=== PATIENT | female | born 1985 | race Caucasian/White ===

== ENCOUNTER → 2016-08-17 | Outpatient (CLI) | payer OTHER ==
[~2016-08-17] MED LIST: MTR600X PO; MULT-506 PO
== END | disposition home or self-care (01) ==
LOC: C.PAPS 12:00
PROVIDERS: ATTEND Obstetrics & Gynecology
DX: Z01.419 Encounter for gynecological examination (general) (routine) without abnormal findings (principal)

== ENCOUNTER 2022-10-29 06:44 | Observation (INO) ==
[2022-10-29] MEDS ORDERED: ONDANSETRON INJ 2 MG/ML 2 ML VIAL IV STA ×2 (07:10→10:07)
[2022-10-29] MEDS ORDERED: SODIUM CHLORIDE 0.9% 1000ML 1,000 ML IV STA (07:10)
[2022-10-29] MEDS ORDERED: KETOROLAC TROMETHAMINE 15 MG/ML VIAL IV STA (07:10)
[2022-10-29 07:25] LABS: Appearance Urine Clear (Clear); Bilirubin Urine Negative (Negative); Blood Urine Negative (Negative); Color Urine Yellow; Glucose Urine UA Negative (Negative); Ketones Urine Trace (Negative); Leukocyte Esterase Urine Negative (Negative); Nitrite Urine Negative (Negative); Protein Urine Negative (Negative); Specific Gravity Urine 1.027 (1.000-1.030); Urobilinogen Urine Negative (Negative)
[2022-10-29] MEDS: fentaNYL citrate PF 100 MCG/2 ML VIAL IV PRN ×2 (07:27→09:53)
[2022-10-29 07:38] LABS: Basophils # (auto) 0.04 K/uL (0-0.2); Basophils % (auto) 0.9 %; Eosinophils # (auto) 0.11 K/uL (0-0.50); Eosinophils % (auto) 2.5 %; Hematocrit (blood only) 39.5 % (37.0-47.0); Hemoglobin 13.5 g/dl (12.0-16.0); Immature Granulocytes # (auto) 0.01 K/uL (0.01-0.20); Immature Granulocytes % (auto) 0.2 %; Lymphocytes # (auto) 1.82 K/uL (1.2-3.4); Lymphocytes % (auto) 40.7 %; Mean Corpuscular Hgb Conc 34.2 g/dL (32.0-36.0); Mean Corpuscular Volume 90.6 fL (80.0-100.0); Mean Platelet Volume 9.1 fL (9.4-12.4); Monocytes # (auto) 0.37 K/uL (0.11-0.59); Monocytes % (auto) 8.3 %; Neutrophils # (auto) 2.12 K/uL (1.40-6.50); Neutrophils % (auto) 47.4 %; Platelet Count 356 K/uL (130-400); RDW Standard Deviation 39.9 fL (36.4-46.3); Red Blood Count 4.36 M/uL (4.20-5.40); White Blood Count 4.47 K/ul (4.8-10.8)
--- NOTE | 2022-10-29 07:47 | Emergency Department Note ---
Impression & Plan Left lateral abdominal pain ED Provider Note INFORMANT: Patient ED PROVIDER(S): Smith Ryan DO CHIEF COMPLAINT: Abdominal pain PLAN: Disposition: Admission Outpatient prescription management: none Discussion with: I spoke with the hospitalist, who will see the patient for admission/observation and further evaluation and consultation. I also spoke with general surgeon, Dr. Rebeca Davis about the patient. MEDICAL DECISION MAKING: This is a 36-year-old female who presents to the ED with a chief complaint of abdominal pain. The pain is in the entire abdomen now. She states that it initially started in the left upper quadrant when she was lifting some weights. She states that she had done treadmill and some crunches. When she was on a bench press doing some weights, she suddenly developed a severe pain in the left upper quadrant. She states that that was about 4:50 AM. She had associated nausea and vomiting secondary to the pain. The pain will come in waves. The patient denies any radiation of the symptoms. She reports history of appendectomy and partial hysterectomy in the past. The pain is more diffuse now. On my exam her vital signs are stable. She is somewhat hypertensive secondary likely to the pain. The patient's lungs are clear. Heart is regular no. Abdomen is soft and diffusely tender. When she contracts her abdominal mus cles, she does not appear to have tenderness in the abdominal musculature. No CVA tenderness. A CBC does not show leukocytosis or anemia. Urine did not show infection. EKG shows a normal sinus rhythm. CBC showed no leukocytosis or anemia. Lipase was negative for pancreatitis. Chest x-ray is clear. CT scan of the abdomen pelvis shows some mild edema and inflammation of some loops of small bowel. This could be related to an enteritis versus internal hernia versus ischemia. Based on the patient's mechanism and history, enteritis seems a little unlikely. Certainly ischemia seems unlikely as well. Internal hernia is a possibility. I spoke with general surgeon, Dr. Felder who r ecommends observation. The medicine service will see the patient for observation. No surgery was indicated at this time Triage Nursing notes reviewed. Vital Signs: reviewed Prior /Outside records reviewed: HIM TECH visit from 10/16/2021 post op visit for hysterectomy. Differential diagnosis: Differential includes musculoskeletal, kidney stone, ovarian cyst rupture, ruptured viscus, vascular catastrophe, other Diagnostics, as interpreted by me: 12 lead ECG: Normal sinus rhythm rate of 69. No ST elevation. No PVCs. Normal QTc. Cardiac Monitoring ordered: Normal sinus rhythm in the 60s and 70s. Medical decision rules: none Imaging studies: Chest x-ray: No acute disease. No pneumonia. No pneumothorax. CT scan of the abdomen pelvis: No obstruction. Procedures: none. Critical care: none. HPI: See MDM above. PAST MEDICAL HISTORY: See Below PAST SURGICAL HISTORY: See Below SOCIAL HISTORY: See Below HOME MEDICATIONS: See Below ALLERGIES: See Below VITALS: See Below PHYSICAL EXAMINATION: See MDM for positive findings otherwise unremarkable. CONSTITUTIONAL/VITAL SIGNS: Reviewed GENERAL:done as appropriate INTEGUMENTARY: done as appropriate HEAD: done as appropriate EYES: done as appropriate RESPIRATORY: done as appropriate CARDIOVASCULAR:done as appropriate GI/ABDOMEN:done as appropriate EXTREMITIES: done as appropriate NEUROLOGICAL: done as appropriate PSYCHIATRIC:done as appropriate MUSCULOSKELETAL:done as appropriate TRIAGE NURSING DOCUMENTATION REVIEWED. Past Med/Surg History Medical History Abnormal uterine bleeding (AUB) H/O uterine leiomyoma H/O varicella Suspected 2018 novel coronavirus infection DAY AFTER 2020-IN CONTACT WITH SON WHO WAS COVID POS-PT HAD POS HOME TEST-STUFFY NOSE, LOSS TASTE AND SMELL-RECOVERED AT HOME-SYMPTOMS RESOLVED Surgical History S/P appendectomy S/P tooth extraction Family History Sister Leiomyoma of body of uterus Mother Hypertension Anemia Denies family history of Ovarian cancer Breast cancer Colorectal cancer Social History Smoking Status: Never smoker Second Hand Exposure: No; Do You Dip or Chew Tobacco: No; Hx Alcohol Use: Yes Alcohol type: beer, wine and hard liquor Hx Substance Use: No Preferred Language: Arabic Communication Ability: Effective Imagery Analyst Required: No Beliefs That Will Affect Care: None Current Living Situation: Spouse and Family current occupational status: employed current occupation: DIETITIAN Feels Safe at Home: Yes Assistive Devices: Contacts and Glasses Allergies Allergies Allergy/AdvReac Type Severity Reaction Status Date / Time codeine AdvReac Unknown Nausea Verified 10/16/21 11:33 Home Meds Home Medications Medication Instructions Recorded Confirmed cholecalciferol (vitamin D3) 50 2,000 units PO HS 07/06/19 10/06/21 mcg (2,000 unit) tablet lactobacillus combination no.4 3 3,000 mmu cells PO QPM 08/03/21 10/06/21 billion cell capsule (Probiotic) multivitamin 1 tab PO HS 08/03/21 10/06/21 Results & Data (ED) Vital Signs Vital Signs - 24 hr 10/29/22 06:48 10/29/22 07:38 10/29/22 07:38 Temperature 36.4 C L Temperature Source Temporal Artery Scan Pulse Rate 78 76 Pulse Rate [Left Finger] 68 Respiratory Rate 18 16 16 Respiratory Effort / Characteristics Non-Labored Respiratory Depth Shallow Normal Blood Pressure 156/91 H Blood Pressure [Left Arm] 136/90 Blood Pressure Mean 112 Blood Pressure Mean [Left Arm] 105 Pulse Oximetry 100 98 98 Oxygen Delivery Method Room Air Room Air Room Air Sepsis Recent Fever Within 48 Hours No Sepsis New/Unexplained Change in Mental Status No Sepsis Action Taken by Nursing No Action Required 10/29/22 07:55 10/29/22 09:52 Temperature Temperature Source Pulse Rate 70 Pulse Rate [Left Finger] 76 Respiratory Rate 16 Respiratory Effort / Characteristics Non-Labored Respiratory Depth Normal Blood Pressure Blood Pressure [Left Arm] 151/89 H Blood Pressure Mean Blood Pressure Mean [Left Arm] 109 Pulse Oximetry 100 Oxygen Delivery Method Room Air Sepsis Recent Fever Within 48 Hours Sepsis New/Unexplained Change in Mental Status Sepsis Action Taken by Nursing Laboratory Data 10/29/22 07:00 10/29/22 07:00 Lab Results 10/29/22 10/29/22 10/29/22 Range/Units 06:55 07:00 07:00 WBC 4.47 L (4.8-10.8) K/ul RBC 4.36 (4.20-5.40) M/uL Hgb 13.5 (12.0-16.0) g/dl Hct 39.5 (37.0-47.0) % MCV 90.6 (80.0-100.0) fL MCH 31.0 (25.0-34.0) pg MCHC 34.2 (32.0-36.0) g/dL RDW Std Deviation 39.9 (36.4-46.3) fL RDW Coeff of Shen 12.0 (11.5-14.5) % Plt Count 356 (130-400) K/uL MPV 9.1 L (9.4-12.4) fL Immature Gran % (Auto) 0.2 % Neut % (Auto) 47.4 % Lymph % (Auto) 40.7 % [place] % (Auto) 8.3 % Eos % (Auto) 2.5 % Baso % (Auto) 0.9 % Neut # (Auto) 2.12 (1.40-6.50) K/uL Lymph # (Auto) 1.82 (1.2-3.4) K/uL [place] # (Auto) 0.37 (0.11-0.59) K/uL Eos # (Auto) 0.11 (0-0.50) K/uL Baso # (Auto) 0.04 (0-0.2) K/uL Immature Gran # (Auto) 0.01 (0.01-0.20) K/uL Sodium 138 (136-145) mmol/L Potassium 3.6 (3.5-5.1) mmol/L Chloride 105 (98-107) mmol/L Carbon Dioxide 25 (21-32) mmol/L Anion Gap 8 (3-11) BUN 12 (6-23) mg/dl Creatinine 0.77 (0.6-1.2) mg/dl Est Cr Clr Drug Dosing 112.3 ml/min Est GFR ( Amer) 114.3 ml/min Est GFR (Non-Af Amer) 98.6 ml/min BUN/Creatinine Ratio 15.6 (10-20) Glucose 113 H (70-99(Fasting)) mg/dl Calcium 8.8 (8.6-10.3) mg/dl Total Bilirubin 0.3 (0.2-1.0) mg/dl AST 16 (13-39) U/L ALT 14 (7-52) U/L Alkaline Phosphatase 43 (34-104) U/L Total Protein 6.9 (6.0-8.3) gm/dl Albumin 4.2 (3.4-5.0) gm/dl Globulin 2.7 (2.5-4.0) gm/dl Albumin/Globulin Ratio 1.6 (0.9-2) Lipase 15 (11-82) U/L Urine Color Yellow Urine Appearance Clear (Clear) Urine pH 7.0 (4.5-7.5) Ur Specific [place] 1.027 (1.000-1.030) Urine Protein Negative (Negative) Urine Glucose (UA) Negative (Negative) Urine Ketones Trace H (Negative) Urine Blood Negative (Negative) Urine Nitrite Negative (Negative) Urine Bilirubin Negative (Negative) Urine Urobilinogen Negative (Negative) Ur Leukocyte Esterase Negative (Negative) Administered Medications Fentanyl Citrate (Fentanyl Citrate Pf 100 Mcg/2 Ml Vial) 50 mcg IV Q15M PRN PRN Reason: Pain Stop: 11/12/22 07:09 Last Admin: 10/29/22 09:53 Dose: 50 mcg Documented By: Admin: 10/29/22 07:27 Dose: 50 mcg Documented By: CASSIDY Discontinued Medications Sodium Chloride (Nss 1000ml) 1,000 mls @ 999 mls/hr IV .Q1H1M STA Stop: 10/29/22 08:10 Last Infusion: 10/29/22 08:52 Dose: 0 mls/hr Documented By: Admin: 10/29/22 07:23 Dose: 999 mls/hr Documented By: CASSIDY Ioversol (Optiray 320 100ml) 90 ml IV ONCE ONE Stop: 10/29/22 08:52 Last Admin: 10/29/22 08:51 Dose: 90 ml Documented By: MILLY Ketorolac Tromethamine (Ketorolac Tromethamine 15 Mg/Ml Vial) 30 mg IV NOW STA Stop: 10/29/22 07:11 Last Admin: 10/29/22 07:34 Dose: 30 mg Documented By: CASSIDY Ondansetron HCl (Ondansetron Inj 2 Mg/Ml 2 Ml Vial) 4 mg IV NOW STA Stop: 10/29/22 07:11 Last Admin: 10/29/22 07:22 Dose: 4 mg Documented By: CASSIDY Ondansetron HCl (Ondansetron Inj 2 Mg/Ml 2 Ml Vial) 4 mg IV NOW STA Stop: 10/29/22 10:08 Last Admin: 10/29/22 10:33 Dose: 4 mg Documented By: CASSIDY Imaging Data Radiologist's Impression: Abdomen/Pelvis CT 10/29/22 07:[address] WITH IV CONTRAST CT DOSE: 646.88 mGycm HISTORY: sudden LUQ pain, now diffuse, vomiting TECHNIQUE: Multiaxial CT images of the abdomen and pelvis were performed following the use of intravenous contrast. A dose lowering technique was utili zed adhering to the principles of ALARA. COMPARISON STUDY: Abdomen and pelvis CT 08/06/2010. FINDINGS: The lung bases are clear. No pneumoperitoneum. No pneumatosis. A few punctate sclerotic foci within the pelvic bones are nonspecific but favor bone islands. The liver, gallbladder, pancreas, spleen, and adrenal glands are unremarkable. Normal left kidney. A 4 mm hypodense lesion within the right kidney too small to characterize but may represent an angiomyolipoma. No hydronephrosis. The main portal vein is patent. The celiac, superior mesenteric, and inferior mesenteric arteries appear patent. Normal caliber abdominal aorta. No retroperitoneal lymphadenopathy. The bladder is unremarkable. Prior hysterectomy and appendectomy. Mild edema/inflammatory change surrounding multiple loops of small bowel within the left mid to lower abdomen. These values do not appear to be significantly distended. Therefore, no evidence for bowel obstruction at this time. IMPRESSION: Mild edema/inflammatory change surrounding multiple loops of small bowel within the left mid abdomen. This favors a nonspecific enteritis and could be due to an infectious or inflammatory process. An underlying internal hernia or ischemia could also be considered in the differential diagnosis. However, there is no evidence for a bowel obstruction at this time. ACT 112: Negative or not required by law. Electronically signed by: Allen Colby M.D. 10/29/2022 9:43 AM Chest X-Ray 10/29/22 07:13 SINGLE VIEW CHEST CLINICAL HISTORY: Generalized abdominal pain. FINDINGS: An AP, portable, upright chest radiograph is obtained. No prior studies are available for comparison at the time of dictation. The cardiomediastinal silhouette is unremarkable. The lungs and pleural spaces are clear. No pneumothorax is seen. The bony thorax is grossly intact. IMPRESSION: No active disease in the chest. ACT 112: Negative or not required by law. Electronically signed by: Galileo Bernal M.D. 10/29/2022 8:02 AM Discharge Plan Visit Data Chief Complaint: Abdominal Pain Stated Complaint: SEVERE ABDOMINAL PAIN LEFT SIDE IN [facility] ED Provider: Smith Ryan Discharge Problem: Left lateral abdominal pain Patient Disposition: Being Evaluated by Hospitalist Forms Stand Alone Forms: [facility] Prescriptions Prescriptions: No Action cholecalciferol (vitamin D3) 2,000 unit tablet 2,000 units PO HS Probiotic 3 billion cell Capsule 3,000 mmu cells PO QPM multivitamin Tablet 1 tab PO HS Referrals Referrals: Margoth Jason MD [Outside Practitioners] -
[2022-10-29 07:53] LABS: Albumin Globulin Ratio 1.6 (0.9-2); Albumin Level 4.2 gm/dl (3.4-5.0); BUN Creatinine Ratio 15.6 (10-20); Bilirubin,Total 0.3 mg/dl (0.2-1.0); Calcium 8.8 mg/dl (8.6-10.3); Creatinine Clr Calc Pharmacy 112.3 ml/min; Est GFR (African American) 114.3 ml/min; Est GFR (Non-African American) 98.6 ml/min; Globulin 2.7 gm/dl (2.5-4.0); Potassium 3.6 mmol/L (3.5-5.1); Total Protein 6.9 gm/dl (6.0-8.3)
--- NOTE | 2022-10-29 08:03 | XRay Report ---
SINGLE VIEW CHEST CLINICAL HISTORY: Generalized abdominal pain. FINDINGS: An AP, portable, upright chest radiograph is obtained. No prior studies are available for c omparison at the time of dictation. The cardiomediastinal silhouette is unremarkable. The lungs and p leural spaces are clear. No pneumothorax is seen. The bony thorax is grossly intact. IMPRESSION: No active disease in the chest. ACT 112: Negative or not required by law. Electronically signed by: Galileo Bernal M.D. 10/29/2022 8:02 AM
[2022-10-29] MEDS ORDERED: OPTIRAY 320 100ml IV ONE (08:51)
--- NOTE | 2022-10-29 09:44 | CT Scan Report ---
ABDOMEN AND PELVIS CT WITH IV CONTRAST CT DOSE: 646.88 mGycm HISTORY: sudden LUQ pain, now diffuse, vomiting TECHNIQUE: Multiaxial CT images of the abdomen and pelvis were performed following the use of intrave nous contrast. A dose lowering technique was utilized adhering to the principles of ALARA. COMPARISON STUDY: Abdomen and pelvis CT 08/06/2010. FINDINGS: The lung bases are clear. No pneumoperitoneum. No pneumatosis. A few punctate sclerotic foc i within the pelvic bones are nonspecific but favor bone islands. The liver, gallbladder, pancreas, s pleen, and adrenal glands are unremarkable. Normal left kidney. A 4 mm hypodense lesion within the ri ght kidney too small to characterize but may represent an angiomyolipoma. No hydronephrosis. The main portal vein is patent. The celiac, superior mesenteric, and inferior mesenteric arteries appear amaya nt. Normal caliber abdominal aorta. No retroperitoneal lymphadenopathy. The bladder is unremarkable. Prior hysterectomy and appendectomy. Mild edema/inflammatory change surrounding multiple loops of sma ll bowel within the left mid to lower abdomen. These values do not appear to be significantly distend ed. Therefore, no evidence for bowel obstruction at this time. IMPRESSION: Mild edema/inflammatory change surrounding multiple loops of small bowel within the left mid abdomen. This favors a nonspecific enteritis and could be due to an infectious or inflammatory process. An un derlying internal hernia or ischemia could also be considered in the differential diagnosis. However, there is no evidence for a bowel obstruction at this time. ACT 112: Negative or not required by law. Electronically signed by: Allen Colby M.D. 10/29/2022 9:43 AM
--- NOTE | 2022-10-29 11:55 | Surgery Consultation ---
Date of Consultation October 29, 2022 Assessment & Plan (1) Left lateral abdominal pain: No surgical indications at this time. Afebrile, HD stable completely resolved symptoms at this encounter. Initiation of admission to medicine for observation underway. Questionable mild gastroenteritis vs a sudden gaseous distention. Will see how she does over night after some additional hydration. Will see her again in the am. Supervising Physician Co-Signing Physician Notes I have seen this patient in the ED and completed this documentation. I also discussed this case with the surgical PA for continued follow up. History of Present Illness History of Present Illness This is a 36y F with a PMH of appendectomy in 2000 and partial hysterectomy who presented to the [facility] ED on 10/29/22 with complaints of left upper quadrant abdominal pain. Patient reports this started immediately after working out. The patient noted sudden sharp LUQ pain that felt similar to gas pain. She proceeded to pack up from her work out and notes the pain severely worsened and because it became so concentrated at the LUQ she became concerned that something else was wrong and proceeded to the ED. She does admit to an episode of vomiting at home prior to her arrival here but thinks that may have been due to the pain. In the ED she received pain medication and then had a second episode of non-bloody vomiting. She was treated with Zofran. Lissett says she continued to have pain in the ED until a second dose of pain medication after which pain has completely resolved. Right now Lissett says she feels good. Admits to mild tenderness now at the low, suprapubic area and no abdominal discomfort at all. She is afebrile and without leukocytosis. A CT a/p was obtained that revealed mild edema/inflammatory change surrounding multiple loops of small bowel within the left mid abdomen. This favors a nonspecific enteritis and could be due to an infectious or inflammatory process. An underlying internal hernia or ischemia could also be considered in the differential diagnosis. However, there is no evidence for a bowel obstruction at this time. Lissett says she is usually more on the constipated side but has noticed more frequent bowel movements the past few weeks which have been somewhat loose and unusual for her. No blood or dark tarry stools. She does not recall passing much flatus today and says she did notice some belching earlier at home that resolved. Lissett had about two prior episodes of LUQ pain and vomiting in the past in 2010 and 2018. 2019 was during camping at which time she actually vomited some blood. This resolved on its own and no cause for this was determined. Allergies Allergy/AdvReac Type Severity Reaction Status Date / Time codeine AdvReac Unknown Nausea Verified 10/16/21 11:33 Home Medications Medication Instructions Recorded Confirmed Type multivitamin 1 tab PO HS 08/03/21 10/29/22 History ascorbic acid (vitamin C) 100 mg 100 mg PO DAILY 10/29/22 10/29/22 History tablet (Vitamin C) sertraline 50 mg tablet 50 mg PO DAILY 10/29/22 10/29/22 History Patient History Medical History (Updated 10/29/22 @ 12:32 by Marlon Gilbert MD) Abnormal uterine bleeding (AUB) Depression H/O uterine leiomyoma H/O varicella Suspected 2018 novel coronavirus infection DAY AFTER 2020-IN CONTACT WITH SON WHO WAS COVID POS-PT HAD POS HOME TEST-STUFFY NOSE, LOSS TASTE AND SMELL-RECOVERED AT HOME-SYMPTOMS RESOLVED Surgical History S/P appendectomy S/P tooth extraction Family History Sister Leiomyoma of body of uterus Mother Hypertension Anemia Denies family history of Ovarian cancer Breast cancer Colorectal cancer Social History Smoking Status: Never smoker Second Hand Exposure: No; Do You Dip or Chew Tobacco: No; Hx Alcohol Use: Yes Alcohol type: beer, wine and hard liquor Hx Substance Use: No Preferred Language: Yakut Communication Ability: Effective Drug Abuse Social Worker Required: No Beliefs That Will Affect Care: None Current Living Situation: Spouse and Family current occupational status: employed current occupation: DIETITIAN Feels Safe at Home: Yes Assistive Devices: Contacts and Glasses Review of Systems Review of Systems: No other associated symptoms Physical Exam Constitutional: cooperative and comfortable; no acute distress, not ill appearing and not overweight Respiratory: normal respiratory effort; no respiratory distress, no labored breathing and does not use accessory muscles Cardiovascular: Extremities: no calf tenderness, no pedal edema and no edema Extremities well perfused Gastrointestinal (Abdomen): Inspection/Auscultation: abdomen normal to inspection; abdomen not distended Percussion/Palpation: + abdomen tender (minimal TTP suprapubic, non-tender LUQ and elsewhere) and abdomen soft; no guarding and abdomen not rigid no peritonitis Results & Data Vital Signs (Past 12 Hours) Vital Signs Temp Pulse Pulse Resp BP BP Pulse Ox 10/29/22 09:52 76 16 151/89 H 100 10/29/22 07:55 70 10/29/22 07:38 76 16 98 10/29/22 07:38 68 16 136/90 98 10/29/22 06:48 36.4 C L 78 18 156/91 H 100 O2 Del Method 10/29/22 09:52 Room Air 10/29/22 07:55 10/29/22 07:38 Room Air 10/29/22 07:38 Room Air 10/29/22 06:48 Room Air Diagnostic Findings ABDOMEN AND PELVIS CT WITH IV CONTRAST CT DOSE: 646.88 mGycm HISTORY: sudden LUQ pain, now diffuse, vomiting TECHNIQUE: Multiaxial CT images of the abdomen and pelvis were performed following the use of intravenous contrast. A dose lowering technique was utilized adhering to the principles of ALARA. COMPARISON STUDY: Abdomen and pelvis CT 08/06/2010. FINDINGS: The lung bases are clear. No pneumoperitoneum. No pneumatosis. A few punctate sclerotic foci within the pelvic bones are nonspecific but favor bone islands. The liver, gallbladder, pancreas, spleen, and adrenal glands are unremarkable. Normal left kidney. A 4 mm hypodense lesion within the right kidney too small to characterize but may represent an angiomyolipoma. No hydronephrosis. The main portal vein is patent. The celiac, superior mesenteric, and inferior mesenteric arteries appear patent. Normal caliber abdominal aorta. No retroperitoneal lymphadenopathy. The bladder is unremarkable. Prior hysterectomy and appendectomy. Mild edema/inflammatory change surrounding multiple loops of small bowel within the left mid to lower abdomen. These values do not appear to be significantly distended. Therefore, no evidence for bowel obstruction at this time. IMPRESSION: Mild edema/inflammatory change surrounding multiple loops of small bowel within the left mid abdomen. This favors a nonspecific enteritis and could be due to an infectious or inflammatory process. An underlying internal hernia or ischemia could also be considered in the differential diagnosis. However, there is no evidence for a bowel obstruction at this time. ACT 112: Negative or not required by law. Electronically signed by: Allen Colby M.D. 10/29/2022 9:43 AM PG Care Time/CCT Total # of Minutes Spent Total Time Spent with Patient: Total time spent is greater than 50% in coordination of care (as documented) at patient's floor/unit and/or counseling patient: Coding Level of Care Code 97898 OFFICE CONSULT LVL 09/27M Diagnoses Left lateral abdominal pain R10.9
--- NOTE | 2022-10-29 12:00 | History & Physical Report ---
Date of Service October 29, 2022 Assessment & Plan (1) Left lateral abdominal pain: (2) Depression: Plan Patient been observed for 24 hours Vitals as protocol Activity as tolerated Diet orders Npo Consult : surgery consult called Unclear of etiology of abdominal pain Enteritis vs internal hernia unlikely to be ischemia . will observe for 24 hours and clinically followup . Toradol, morphine prn for pain Continue sertraline for depression. Code status: patient is a full code. No need for vte prophylaxis Disposition: Discharge likely in 24 hours. will upgrade diet as tolerated. I spent a total of 70 minutes reviewing notes, outpatient records, labs, medication, coordinating, documenting and providing care for this patient excluding time spent in the performance of separately billed services. History of Present Illness Chief Complaint: left sided abdominal pain for the past few hours Primary Care Provider: Hermelinda Montanez PA-C 36 yr old male with history of depression , h/o appendectomy, hysterectomy presented to the er with complaints of severe left upper quadrant abdominal pain . Patient was exercising in am and felt severe pain in the left upper and mid abdomen. Pain was stabbing type 10/10 intensity associated with Nausea and vomiting . She threw up 3 times. Pain got severe that she needed to come to the ER. denies any chest pain. No shortness of breath. No fevers . She was evaluated in the Er and got a dose of fentanyl and Toradol. At time of evaluation her symptoms had improved . No radiation of the abdominal pain. no back pain. Allergies Allergy/AdvReac Type Severity Reaction Status Date / Time codeine AdvReac Unknown Nausea Verified 10/16/21 11:33 Home Medications Medication Instructions Recorded Confirmed Type multivitamin 1 tab PO HS 08/03/21 10/29/22 History ascorbic acid (vitamin C) 100 mg 100 mg PO DAILY 10/29/22 10/29/22 History tablet (Vitamin C) sertraline 50 mg tablet 50 mg PO DAILY 10/29/22 10/29/22 History Past Med/Surg History Medical History (Updated 10/29/22 @ 12:32 by Marlon Gilbert MD) Abnormal uterine bleeding (AUB) Depression H/O uterine leiomyoma H/O varicella Suspected 2018 novel coronavirus infection DAY AFTER GI2020-IN CONTACT WITH SON WHO WAS COVID POS-PT HAD POS HOME TEST-STUFFY NOSE, LOSS TASTE AND SMELL-RECOVERED AT HOME-SYMPTOMS RESOLVED Surgical History S/P appendectomy S/P tooth extraction Family History Sister Leiomyoma of body of uterus Mother Hypertension Anemia Denies family history of Ovarian cancer Breast cancer Colorectal cancer Social History Smoking Status: Never smoker Second Hand Exposure: No; Do You Dip or Chew Tobacco: No; Hx Alcohol Use: Yes Alcohol type: beer, wine and hard liquor Hx Substance Use: No Preferred Language: Tamazight Communication Ability: Effective [employer] Products Required: No Beliefs That Will Affect Care: None Current Living Situation: Spouse and Family current occupational status: employed 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 Resp: Lungs air entry present in bilaterally. no crackles. GI: Abdomen , minimal tenderness Musculoskeletal:non tender. Skin: (-) rashes , (-) erythema. Psych: Normal affect Results & Data Results & Data Vital Signs (Past 12 Hours) Vital Signs Temp Pulse Pulse Resp BP BP Pulse Ox 10/29/22 11:56 68 10/29/22 09:52 76 16 151/89 H 100 10/29/22 07:55 70 10/29/22 07:38 76 16 98 10/29/22 07:38 68 16 136/90 98 10/29/22 06:48 36.4 C L 78 18 156/91 H 100 O2 Del Method 10/29/22 11:56 10/29/22 09:52 Room Air 10/29/22 07:55 10/29/22 07:38 Room Air 10/29/22 07:38 Room Air 10/29/22 06:48 Room Air Laboratory Results Laboratory Results WBC 4.47 K/ul (4.8-10.8) L 10/29/22 07:00 RBC 4.36 M/uL (4.20-5.40) 10/29/22 07:00 Hgb 13.5 g/dl (12.0-16.0) 10/29/22 07:00 Hct 39.5 % (37.0-47.0) 10/29/22 07:00 MCV 90.6 fL (80.0-100.0) 10/29/22 07:00 MCH 31.0 pg (25.0-34.0) 10/29/22 07:00 MCHC 34.2 g/dL (32.0-36.0) 10/29/22 07:00 RDW Std Deviation 39.9 fL (36.4-46.3) 10/29/22 07:00 RDW Coeff of Shen 12.0 % (11.5-14.5) 10/29/22 07:00 Plt Count 356 K/uL (130-400) 10/29/22 07:00 MPV 9.1 fL (9.4-12.4) L 10/29/22 07:00 Immature Gran % (Auto) 0.2 % 10/29/22 07:00 Neut % (Auto) 47.4 % 10/29/22 07:00 Lymph % (Auto) 40.7 % 10/29/22 07:00 [place] % (Auto) 8.3 % 10/29/22 07:00 Eos % (Auto) 2.5 % 10/29/22 07:00 Baso % (Auto) 0.9 % 10/29/22 07:00 Neut # (Auto) 2.12 K/uL (1.40-6.50) 10/29/22 07:00 Lymph # (Auto) 1.82 K/uL (1.2-3.4) 10/29/22 07:00 [place] # (Auto) 0.37 K/uL (0.11-0.59) 10/29/22 07:00 Eos # (Auto) 0.11 K/uL (0-0.50) 10/29/22 07:00 Baso # (Auto) 0.04 K/uL (0-0.2) 10/29/22 07:00 Immature Gran # (Auto) 0.01 K/uL (0.01-0.20) 10/29/22 07:00 Sodium 138 mmol/L (136-145) 10/29/22 07:00 Potassium 3.6 mmol/L (3.5-5.1) 10/29/22 07:00 Chloride 105 mmol/L (98-107) 10/29/22 07:00 Carbon Dioxide 25 mmol/L (21-32) 10/29/22 07:00 Anion Gap 8 (3-11) 10/29/22 07:00 BUN 12 mg/dl (6-23) 10/29/22 07:00 Creatinine 0.77 mg/dl (0.6-1.2) 10/29/22 07:00 Est Cr Clr Drug Dosing 112.3 ml/min 10/29/22 07:00 Est GFR ( Amer) 114.3 ml/min 10/29/22 07:00 Est GFR (Non-Af Amer) 98.6 ml/min 10/29/22 07:00 BUN/Creatinine Ratio 15.6 (10-20) 10/29/22 07:00 Glucose 113 mg/dl (70-99(Fasting)) H 10/29/22 07:00 Calcium 8.8 mg/dl (8.6-10.3) 10/29/22 07:00 Total Bilirubin 0.3 mg/dl (0.2-1.0) 10/29/22 07:00 AST 16 U/L (13-39) 10/29/22 07:00 ALT 14 U/L (7-52) 10/29/22 07:00 Alkaline Phosphatase 43 U/L (34-104) 10/29/22 07:00 Total Protein 6.9 gm/dl (6.0-8.3) 10/29/22 07:00 Albumin 4.2 gm/dl (3.4-5.0) 10/29/22 07:00 Globulin 2.7 gm/dl (2.5-4.0) 10/29/22 07:00 Albumin/Globulin Ratio 1.6 (0.9-2) 10/29/22 07:00 Lipase 15 U/L (11-82) 10/29/22 07:00 Urine Color Yellow 10/29/22 06:55 Urine Appearance Clear (Clear) 10/29/22 06:55 Urine pH 7.0 (4.5-7.5) 10/29/22 06:55 Ur Specific [place] 1.027 (1.000-1.030) 10/29/22 06:55 Urine Protein Negative (Negative) 10/29/22 06:55 Urine Glucose (UA) Negative (Negative) 10/29/22 06:55 Urine Ketones Trace (Negative) H 10/29/22 06:55 Urine Blood Negative (Negative) 10/29/22 06:55 Urine Nitrite Negative (Negative) 10/29/22 06:55 Urine Bilirubin Negative (Negative) 10/29/22 06:55 Urine Urobilinogen Negative (Negative) 10/29/22 06:55 Ur Leukocyte Esterase Negative (Negative) 10/29/22 06:55 SARS-CoV-2, RNA, NAAT NEGATIVE (NEGATIVE) 10/29/22 11:58 Impressions Abdomen/Pelvis CT 10/29/22 07:[address] WITH IV CONTRAST CT DOSE: 646.88 mGycm HISTORY: sudden LUQ pain, now diffuse, vomiting TECHNIQUE: Multiaxial CT images of the abdomen and pelvis were performed following the use of intravenous contrast. A dose lowering technique was utilized adhering to the principles of ALARA. COMPARISON STUDY: Abdomen and pelvis CT 08/06/2010. FINDINGS: The lung bases are clear. No pneumoperitoneum. No pneumatosis. A few p unctate sclerotic foci within the pelvic bones are nonspecific but favor bone islands. The liver, gallbladder, pancreas, spleen, and adrenal glands are unremarkable. Normal left kidney. A 4 mm hypodense lesion within the right kidney too small to characterize but may represent an angiomyolipoma. No hydronephrosis. The main portal vein is patent. The celiac, superior mesenteric, and inferior mesenteric arteries appear patent. Normal caliber abdominal aorta. No retroperitoneal lymphadenopathy. The bladder is unremarkable. Prior hysterectomy and appendectomy. Mild edema/inflammatory change surrounding multiple loops of small bowel within the left mid to lower abdomen. These values do not appear to be significantly distended. Therefore, no evidence for bowel obstruction at this time. IMPRESSION: Mild edema/inflammatory change surrounding multiple loops of small bowel within the left mid abdomen. This favors a nonspecific enteritis and could be due to an infectious or inflammatory process. An underlying internal hernia or ischemia could also be considered in the differential diagnosis. However, there is no evidence for a bowel obstruction at this time. ACT 112: Negative or not required by law. Electronically signed by: Allen Colby M.D. 10/29/2022 9:43 AM Chest X-Ray 10/29/22 07:13 SINGLE VIEW CHEST CLINICAL HISTORY: Generalized abdominal pain. FINDINGS: An AP, portable, upright chest radiograph is obtained. No prior studies are available for comparison at the time of dictation. The cardiomediastinal silhouette is unremarkable. The lungs and pleural spaces are clear. No pneumothorax is seen. The bony thorax is grossly intact. IMPRESSION: No active disease in the chest. ACT 112: Negative or not required by law. Electronically signed by: Galileo Bernal M.D. 10/29/2022 8:02 AM Abnormal Labs 10/29/22 10/29/22 10/29/22 06:55 07:00 07:00 WBC 4.47 L MPV 9.1 L Glucose 113 H Urine Ketones Trace H ECG Additional Comments: Normal sinus rhythm with sinus arrhythmia Normal ECG Code Status & VTE Plan Code Status Code status discussed with patient and orders placed in chart . VTE Prophylaxis Plan VTE Prophylaxis will be ordered: No Reason for no VTE drug order: Treatment not indicated
[2022-10-29] MEDS ORDERED: MoRPHine SULFATE 2 MG/ML CARP IV PRN (17:40)
[2022-10-29] MEDS ORDERED: KETOROLAC TROMETHAMINE 15 MG/ML VIAL IV PRN (17:40)
[2022-10-29] MEDS ORDERED: ONDANSETRON INJ 2 MG/ML 2 ML VIAL IV PRN (17:40)
[2022-10-29] MEDS: SODIUM CHLORIDE 0.9% 1000ML 1,000 ML IV SCH (17:44)
[2022-10-29] MEDS ORDERED: MULTIVITAMIN TAB PO SCH (21:00)
[2022-10-30] MEDS: SODIUM CHLORIDE 0.9% 1000ML 1,000 ML IV SCH (03:39)
[2022-10-30] MEDS ORDERED: SERTRALINE HCL 50 MG TABLET PO SCH (09:00)
[2022-10-30] MEDS ORDERED: ASCORBIC ACID 500 MG TAB PO SCH (09:00)
--- NOTE | 2022-10-30 09:57 | Surgery Progress Note ---
This case was discussed with the surgical PA. I agree with the plan. Date of Service October 30, 2022 Assessment & Plan (1) Left lateral abdominal pain: Plan: Patient here with L sided abdominal pain s/p working out Her pain has significantly improved. She has no pain what so ever. Tolerating diet. no n/v WBC yesterday was normal and vitals have been stable She is okay for discharge to home today from our standpoint. Recommend hydrating well pre-post work outs. No need to f/u with us, may f/u with her PCP upon dispo Admission and Anticipated Discharge Date Admission Date: October 29, 2022 Subjective Patient reports feeling well. Denies any abdominal pain, nausea/vomiting. She is tolerating a regular diet without issues. Passing some flatus. Physical Exam Physical Exam: awake/alert, no distress Gastrointestinal (Abdomen): Inspection/Auscultation: abdomen not distended Percussion/Palpation: abdomen soft; abdomen nontender Results & Data Vital Signs (Past 12 Hours) Vital Signs Temp Pulse Resp BP Pulse Ox O2 Del Method 10/30/22 08:29 36.8 C 83 16 120/77 98 Room Air PG Care Time/CCT Total # of Minutes Spent Total Time Spent with Patient: Total time spent is greater than 50% in coordination of care (as documented) at patient's floor/unit and/or counseling patient: Coding Level of Care Code 21149 SUB INP/OBS CARE 1/25MIN Diagnoses Left lateral abdominal pain R10.9
--- NOTE | 2022-10-30 10:16 | Discharge Summary ---
Discharge Summary Date of Service October 30, 2022 Notes For Next Care Provider Pt admitted to Left-mid abdominal pain associated with nausea and vomiting after completing a work out. Symptoms resolved with conservative treatment of rest, IVF and pain medication. General surgery was consulted but no apparent etiology was found as the cause of the pain, ?gaseous distension. Pt does have history of hysterectomy and appendectomy so possibility of adhesions. CT did not show any tesfaye obstruction. Medication Changes From Visit None Admission HPI Per Admitting Provider 36 yr old male with history of depression , h/o appendectomy, hysterectomy presented to the er with complaints of severe left upper quadrant abdominal pain . Patient was exercising in am and felt severe pain in the left upper and mid abdomen. Pain was stabbing type 10/10 intensity associated with Nausea and vomiting . She threw up 3 times. Pain got severe that she needed to come to the ER. denies any chest pain. No shortness of breath. No fevers . She was evaluated in the Er and got a dose of fentanyl and Toradol. At time of evaluation her symptoms had improved . No radiation of the abdominal pain. no back pain. Admission Exam Per Admitting Provider : Neuro: AAOx4, PERRLA,No aphasia, HEENT: head normocephalic, CV: S1/S2, no murmurs. Resp: Lungs air entry present in bilaterally. no crackles. GI: Abdomen , minimal tenderness Musculoskeletal:non tender. Skin: (-) rashes , (-) erythema. Psych: Normal affect Principal Dx & Hospital Course #1 = Principal Diagnosis (1) Left lateral abdominal pain: (2) Depression: Plan This is a 36-year-old female who has significant past medical history of depression, Hysterectomy with bilateral salpingectomy and appendectomy who presented to ED secondary to left to mid severe abdominal pain associate with nausea and vomiting. Symptoms started over the gym working out. When pain started she did have a large bowel movement, but pain continued and she had associated nausea and vomiting. She felt may be secondary to pain, continue to have episodes of emesis. In ED patient received IV hydration, pain medications and CT scan of abdomen pelvis revealed questionable enteritis and less likely ischemia. She was admitted overnight for observation with IV hydration. She was seen and evaluated by general surgery and her symptoms had completely resolved before being seen by them. They did not feel there were any surgical indications and thought symptoms may be secondary to mild gastroenteritis versus sudden gaseous distention. Patient tolerated IV fluids well and in a.m. tolerated breakfast. Symptoms have not completely resolved and she no longer has nausea or vomiting. She is encouraged to stay well-hydrated drinking 2 to 3 L of water daily especially when exercising. She is being discharged home in good spirits, vitals are stable, free of abdominal pain we will continue her current medication regimen. Discharge Exam Gen: WD/WN, NAD, A&O x3 HEENT: Normocephalic, atraumatic, conjunctivae moist, sclerae anicteric, mucous membranes moist. Lung: Clear to Auscultation bilaterally, no wheezes/rales/rhonchi Heart: Regular rate, regular rhythm, no murmurs, rubs, or gallops Abdomen: Soft, NT, ND +BS x 4 Extremities: No edema Skin: Warm, no rash, negative turgor. Updated Medication List Medication Instructions Recorded Confirmed Type multivitamin 1 tab PO HS 08/03/21 10/29/22 History ascorbic acid (vitamin C) 100 mg 100 mg PO DAILY 10/29/22 10/29/22 History tablet (Vitamin C) sertraline 50 mg tablet 50 mg PO DAILY 10/29/22 10/29/22 History Hospital Stay Data Consultations 10/29/22 11:17 ED Decision to Admit Stat 10/29/22 17:40 Consult General Surgery Routine Diagnostic Imagining Performed Abdomen/Pelvis CT 10/29/22 07:[address] WITH IV CONTRAST CT DOSE: 646.88 mGycm HISTORY: sudden LUQ pain, now diffuse, vomiting TECHNIQUE: Multiaxial CT images of the abdomen and pelvis were performed following the use of intravenous contrast. A dose lowering technique was utilized adhering to the principles of ALARA. COMPARISON STUDY: Abdomen and pelvis CT 08/06/2010. FINDINGS: The lung bases are clear. No pneumoperitoneum. No pneumatosis. A few punctate sclerotic foci within the pelvic bones are nonspecific but favor bone islands. The liver, gallbladder, pancreas, spleen, and adrenal glands are unremarkable. Normal left kidney. A 4 mm hypodense lesion within the right kidney too small to characterize but may represent an angiomyolipoma. No hydronephrosis. The main portal vein is patent. The celiac, superior mesenteric, and inferior mesenteric arteries appear patent. Normal caliber abdominal aorta. No retroperitoneal lymphadenopathy. The bladder is unremarkable. Prior hysterectomy and appendectomy. Mild edema/inflammatory change surrounding multiple loops of small bowel within the left mid to lower abdomen. These values do not appear to be significantly distended. Therefore, no evidence for bowel obstruction at this time. IMPRESSION: Mild edema/inflammatory change surrounding multiple loops of small bowel within the left mid abdomen. This favors a nonspecific enteritis and could be due to an infectious or inflammatory process. An underlying internal hernia or ischemia could also be considered in the differential diagnosis. However, there is no evidence for a bowel obstruction at this time. ACT 112: Negative or not required by law. Electronically signed by: Allen Colby M.D. 10/29/2022 9:43 AM Chest X-Ray 10/29/22 07:13 SINGLE VIEW CHEST CLINICAL HISTORY: Generalized abdominal pain. FINDINGS: An AP, portable, upright chest radiograph is obtained. No prior studies are available for comparison at the time of dictation. The cardiomediastinal silhouette is unremarkable. The lungs and pleural spaces are clear. No pneumothorax is seen. The bony thorax is grossly intact. IMPRESSION: No active disease in the chest. ACT 112: Negative or not required by law. Electronically signed by: Galileo Bernal M.D. 10/29/2022 8:02 AM Pending Results Patient Have Any Pending Studies at Discharge: No Discharge Instructions Given to Patient (Per Discharging Provider) MEDICATION CHANGES: None SUMMARY OF TEST RESULTS: You were admitted to hospital secondary to nausea, vomiting and abdominal pain. CT scan was performed which showed mild gastroenteritis. Your symptoms resolved with pain medication and hydration. Your lab work was normal. PENDING TEST RESULTS: None RECOMMENDATIONS FOR FOLLOW-UP: Please follow up with Primary care provider at discharge. Recommend staying well hydrated, especially when exercising. Recommend 2L of OTHER INSTRUCTIONS: Seek medical attention if you have: * temperature above 101 * chest pain or trouble breathing * abdominal pain, nausea, vomiting * diarrhea, dark stools or bloody stools * any unanswered questions or concerns Call 911 if symptoms are severe. Please take good care of yourself. It has been a pleasure taking care of you. Please take care of yourself. If you have any questions regarding your recent hospitalization please contact [facility] and request [facility] Sue @ [phone]. Esme Hussein PA-C Total Time Total Time Spent Total Time Spent (In Minutes): 35 minutes Supervising Physician Co-Signing Physician Notes Pt seen and examined by me, care coordinated w/ B. MAME Hussein, pls refer to her note above for further detail. 36-year-old female, with history of hysterectomy, presented with abdominal pain, after work-out, in addition episodes of vomiting. Symptoms have resolved with conservative management, however surgery was also consulted. Patient is now tolerating diet, and denies any abdominal pain. She is having BM. No fevers chills chest pain shortness of breath. She is awake alert oriented answering appropriately. Lungs are clear to auscultation. Heart sounds regular. Abdomen soft nontender with positive bowel sounds. Patient is to follow-up with PCP for further care. MD Mari
--- NOTE | 2022-10-30 16:50 | Electrocardiogram Report ---
Test Reason : Blood Pressure : / mmHG Vent. Rate : 069 BPM Atrial Rate : 069 BPM P-R Int : 170 ms QRS Dur : 084 ms QT Int : 400 ms P-R-T Axes : 062 063 018 degrees QTc Int : 428 ms Normal sinus rhythm with sinus arrhythmia Normal ECG When compared with ECG of 01-SEP-2021 13:08, T wave inversion less evident in Inferior leads T wave inversion no longer evident in Anterolateral leads Confirmed by Wes Smith ([id number]) on 10/30/2022 4:49:49 PM Referred By: REFERRED SELF Confirmed By:Wes Smith
== END 2022-10-30 10:54 | disposition home or self-care (01) ==
LOC: 3N 06:44 → ED 06:44 → SUATTDRO 11:48 → 3N 17:19